=== PATIENT | female | born 1980 | race Caucasian/White ===

== ENCOUNTER 2016-08-24 14:26 | Emergency (ER) | payer OTHER ==
[~2016-08-24] VITALS: Ht 170.2 cm; Wt 112.5 kg
--- NOTE | 2016-08-24 14:35 | PHYS DOC ---
Adult General Chief Complaint Chief Complaint: EYE PROBLEMS HPI HPI Patient is a 35 year old female who presents with pimple to the right eyelid. Patient states that about a week and this morning it popped with a small amount of pus came out of it. She put a warm wet washcloth on it and now there is a small area of blackness around it. She is concerned that it could be a spider bite. She denies any changes in vision, any with movement of her extraocular muscles, fevers chills nausea or vomiting. She is unsure when her last tetanus shot was but does have a 1-year-old home and thinks that she had at this time. Review of Systems Review of Systems Constitutional: Denies fever or chills [] Eyes: Denies change in visual acuity, redness, or eye pain [] HENT: Denies nasal congestion or sore throat [] Respiratory: Denies cough or shortness of breath [] Cardiovascular: No additional information not addressed in HPI [] GI: Denies abdominal pain, nausea, vomiting, bloody stools or diarrhea [] : Denies dysuria or hematuria [] Musculoskeletal: Denies back pain or joint pain [] Integument: Denies rash, positive for skin lesions on right upper eyelid Neurologic: Denies headache, focal weakness or sensory changes [] Endocrine: Denies polyuria or polydipsia [] Current Medications Current Medications Current Medications Medications (Trade) Dose Ordered Sig/Kayleigh Start Time Stop Time Status Last Admin Dose Admin Diphtheria/ Tetanus/Acell Pertussis (Boostrix) 0.5 ml ONCE ONCE 08/24/16 15:15 08/24/16 15:16 DC Fluorescein Sodium (Ful-Nadya) 1 strip 1X ONCE 08/24/16 15:00 08/24/16 15:01 DC Tetracaine HCl (Tetracaine) 1 drop 1X ONCE 08/24/16 15:00 08/24/16 15:01 DC Allergies Allergies Allergies Coded Allergies Type Severity Reaction Last Updated Verified No Known Drug Allergies 07/15/15 No Physical Exam Physical Exam Constitutional: Well developed, well nourished, no acute distress, non-toxic appearance. [] HENT: Normocephalic, atraumatic, bilateral external ears normal, oropharynx moist, no oral exudates, nose normal. [] Eyes: PERRLA, EOMI, conjunctiva normal, no discharge. [] Neck: Normal range of motion, no tenderness, supple, no stridor. [] Cardiovascular:Heart rate regular rhythm, no murmur [] Lungs & Thorax: Bilateral breath sounds clear to auscultation [] Abdomen: Bowel sounds normal, soft, no tenderness, no masses, no pulsatile masses. [] Skin: Warm, dry, no erythema, no rash. 2 mm scab on the right upper eyelid with minimal erythema surrounding it, no swelling of the eyelid. Back: No tenderness, no CVA tenderness. [] Extremities: No tenderness, no cyanosis, no clubbing, ROM intact, no edema. [] Neurologic: Alert and oriented X 3, normal motor function, normal sensory function, no focal deficits noted. [] Psychologic: Affect normal, judgement normal, mood normal. [] Current Patient Data Vital Signs Vital Signs Date Time Temp Pulse Resp B/P (MAP) Pulse Ox O2 Delivery O2 Flow Rate FiO2 08/24/16 14:46 97.9 73 14 95 Room Air 97.9 EKG EKG [] Radiology/Procedures Radiology/Procedures [] Impressions: Eyelid infection Course & Med Decision Making Course & Med Decision Making Pertinent Labs and Imaging studies reviewed. (See chart for details) She looks well. Her exam does not show any pain with extra ocular movement. She is instructed use a warm wet washcloth and use Bactrim twice a day for the next 7 days. Return precautions given for high fevers, extra ocular muscle pain, change in vision to return back to ER. She is agreeable Plan B discharged in stable condition at this time after we updated her tetanus. Artie Disclaimer Artie Disclaimer This electronic medical record was generated, in whole or in part, using a voice recognition dictation system. Departure Departure Impression: Primary Impression: Infection of eyelid Disposition: 01 HOME, SELF-CARE Condition: STABLE Referrals: NO PCP (PCP) Patient Instructions: Facial Infection Additional Instructions: You have a small infection on your upper eyelid of your right eye. You'll need take antibiotics for the next 7 days. Watch for any worsening signs of infection such as swelling, blurry vision, pain when you look from side to side. If any these occur please return back to emergency department. Scripts Sulfamethoxazole/Trimethoprim (BACTRIM DS TABLET) 1 Each Tablet 1 TAB PO BID, #14 TAB Prov: REJI MARTÍNEZ MD 08/24/16 REJI MARTÍNEZ MD Aug 24, 2016 14:35
[2016-08-24 14:46] VITALS: BP 121/47
[2016-08-24] MEDS ORDERED: FLUORESCEIN OPHTH TEST STRIP. OS ONE (15:00)
[2016-08-24] MEDS ORDERED: TETRACAINE 0.5% OPHTH SOLUTION 4ML BOTTLE. OD ONE (15:00)
[2016-08-24] MEDS ORDERED: DIPHTH,PERTUSS(ACELL),TET TOX 0.5 ML DISP.SYRIN. VAX IM ONE (15:15)
[2016-08-24] MEDS ORDERED: SULF1TAB24 PO (15:17)
== END 2016-08-24 15:35 | disposition home or self-care (01) ==
LOC: ER 14:26
DX: H01.9 Unspecified inflammation of eyelid (principal)
CPT/HCPCS: 90471; 90715; 99283-25

== ENCOUNTER 2017-02-13 14:49 | Emergency (ER) | payer OTHER | END 2017-02-13 15:19 | disposition home or self-care (01) | LOC: ER 14:49 | DX: K04.7 Periapical abscess without sinus (principal) | CPT/HCPCS: 99283 ==

== ENCOUNTER 2017-02-16 18:53 | Emergency (ER) | payer OTHER | END 2017-02-16 19:51 | disposition home or self-care (01) | LOC: ER 18:53 | DX: S96.912A Strain of unspecified muscle and tendon at ankle and foot level, left foot, initial encounter (principal); Y93.89 Activity, other specified; Y99.8 Other external cause status; Y92.89 Other specified places as the place of occurrence of the external cause | CPT/HCPCS: 73630; 99284 ==

== ENCOUNTER → 2017-03-13 | Outpatient (CLI) | payer OTHER | END | disposition home or self-care (01) | LOC: US 15:26 | DX: R19.00 Intra-abdominal and pelvic swelling, mass and lump, unspecified site (principal); N88.8 Other specified noninflammatory disorders of cervix uteri; R16.0 Hepatomegaly, not elsewhere classified | CPT/HCPCS: 76700; 76830; 76856 ==

== ENCOUNTER 2017-04-11 13:10 | Emergency (ER) | payer OTHER ==
[2017-04-11] MEDS: ACETAMINOPHEN 500 MG TABLET PO ×2 (13:55)
[2017-04-11 14:13] LABS: INFLUENZA A PATIENT POSITIVE (NEGATIVE); INFLUENZA B PATIENT NEGATIVE (NEGATIVE); OBC FLU VALID
== END 2017-04-11 14:26 | disposition home or self-care (01) ==
LOC: ER 13:10
DX: J09.X2 Influenza due to identified novel influenza A virus with other respiratory manifestations (principal); F17.210 Nicotine dependence, cigarettes, uncomplicated
CPT/HCPCS: 87804; 87804-59; 99284

== ENCOUNTER 2017-06-02 20:16 | Emergency (ER) | payer OTHER | END 2017-06-02 20:30 | disposition home or self-care (01) | LOC: ER 20:16 | DX: K04.7 Periapical abscess without sinus (principal); K02.9 Dental caries, unspecified; Z98.51 Tubal ligation status | CPT/HCPCS: 99283 ==

== ENCOUNTER 2017-11-21 09:42 | Emergency (ER) | payer OTHER ==
[~2017-11-21] VITALS: Ht 170.2 cm; Wt 98.9 kg
[~2017-11-21 09:42] MED LIST: ACET325T9 PO; IBUP-1007 PO; NAPR-683 PO; OSEL75CA PO; PENI500T PO; SULF1TAB24 PO; TRAM50TA PO
[2017-11-21 09:55] VITALS: BP 140/79
[2017-11-21] MEDS: KETOROLAC 60 MG/2 ML INJ. IM ONE (10:23)
[2017-11-21] MEDS ORDERED: CYCL10TA2 PO (10:28)
[2017-11-21] MEDS ORDERED: NAPR-514 PO (10:28)
--- NOTE | 2017-11-21 10:29 | PHYS DOC ---
Past Medical History Past Medical History: No Pertinent History Additional Past Medical Histor: enlarged liver Past Surgical History: Tubal ligation Alcohol Use: Rarely Drug Use: Marijuana Adult General Chief Complaint Chief Complaint: BACK PAIN - NO INJURY HPI HPI Patient is a 37 year old female who presents to the ER with complaints of R upper back, shoulder, and neck pain after feeling something pull in her back this morning while stretching. Pt reports a history of chronic back pain, denies any recent flare up of her symptoms. 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 She denies any weakness, numbness, or tingling of the R arm. Currently, she rates her pain as a 6 out of 10 currently unless she moves then the pain increases. Review of Systems Review of Systems Constitutional: Denies fever or chills [] Musculoskeletal: Denies joint pain; reports R upper back pain, R shoulder pain , R neck pain that increases with movement. Integument: Denies rash or skin lesions [] Neurologic: Denies headache, focal weakness or sensory changes [] All other systems were reviewed and found to be within normal limits, except as documented in this note. Current Medications Current Medications Current Medications Medications (Trade) Dose Ordered Sig/Kayleigh Start Time Stop Time Status Last Admin Dose Admin Ketorolac Tromethamine (Toradol Im) 30 mg 1X ONCE 11/21/17 10:15 11/21/17 10:16 DC 11/21/17 10:23 30 MG Allergies Allergies Allergies Coded Allergies Type Severity Reaction Last Updated Verified morphine Allergy Intermediate hallucinations 11/21/17 Yes Physical Exam Physical Exam Constitutional: Well developed, well nourished, no acute distress, non-toxic appearance. [] HENT: Normocephalic, atraumatic, bilateral external ears normal, nose normal. [ ] Eyes: PERRLA, conjunctiva normal, no discharge. [] Neck: Normal range of motion, no tenderness, supple, no stridor. [] Skin: Warm, dry, no erythema, no rash. [] Back: R lateral muscular tenderness, No bony tenderness Extremities: No cyanosis, no clubbing, ROM intact, no edema. [] Neurologic: Alert and oriented X 3, normal motor function, normal sensory function, no focal deficits noted. [] Psychologic: Affect normal, judgement normal, mood normal. [] Current Patient Data Vital Signs Vital Signs Date Time Temp Pulse Resp B/P (MAP) Pulse Ox O2 Delivery O2 Flow Rate FiO2 11/21/17 09:55 99.0 74 16 140/79 (99) 97 Room Air 99.0 EKG EKG [] Radiology/Procedures Radiology/Procedures [] Course & Med Decision Making Course & Med Decision Making Pertinent Labs and Imaging studies reviewed. (See chart for details) Dx R upper back strain Pt was given 30 mg of toradol IM in the emergency department. Prescriptions written for Flexeril and naproxen. Encouraged pt to apply ice or heat to sore areas for comfort, activity as tolerated, and follow up with PCP next week. Patient verbalized an understanding of home care, medications, follow-up, and return to ED instructions and was in agreement with the plan of care. [] Dragon Disclaimer Dragon Disclaimer This electronic medical record was generated, in whole or in part, using a voice recognition dictation system. Departure Departure Impression: Primary Impression: Muscle strain of right upper back Disposition: HOME, SELF-CARE Condition: STABLE Referrals: PAULINA GILL MD (PCP) Patient Instructions: Back Injury Prevention, [id number], Back Pain, Adult, [id number] Additional Instructions: Fill prescriptions and use as directed. Apply ice or heat for comfort. Activity as tolerated. Follow up with your PCP next week. return to the ER if your symptoms worsen. Scripts Cyclobenzaprine Hcl (CYCLOBENZAPRINE HCL) 10 Mg Tablet 1 TAB PO TID for 7 Days, #21 TAB 0 Refills Prov: YOSSI RINCON APRN 11/21/17 Naproxen (NAPROXEN) 500 Mg Tablet 500 MG PO BID PRN for PAIN for 10 Days, #20 TAB 0 Refills Prov: YOSSI RINCON APRN 11/21/17 Attending Signature Attending Signature I have reviewed the PA/COLORING CHECKER's note and plan of care. I was available for consultation as needed during the patient's visit in the emergency department. I agree with the clinical impression, plan, and disposition. Problem Qualifiers Primary Impression: Muscle strain of right upper back Encounter type: initial encounter Qualified Codes: S29.012A - Strain of muscle and tendon of back wall of thorax, initial encounter YOSSI RINCON APRN Nov 21, 2017 10:28 RICHMOND,SEAN Sood DO Nov 21, 2017 12:08
== END 2017-11-21 10:40 | disposition home or self-care (01) ==
LOC: ER 09:42
DX: S29.012A Strain of muscle and tendon of back wall of thorax, initial encounter (principal); M25.511 Pain in right shoulder; M54.2 Cervicalgia; Z88.5 Allergy status to narcotic agent; X50.9XXA Other and unspecified overexertion or strenuous movements or postures, initial encounter; Y93.E9 Activity, other interior property and clothing maintenance; Y92.89 Other specified places as the place of occurrence of the external cause; Y99.8 Other external cause status
CPT/HCPCS: 96372; 99283; J1885

== ENCOUNTER 2018-06-29 18:59 | Emergency (ER) | payer OTHER ==
[~2018-06-29] VITALS: Ht 170.2 cm; Wt 94.8 kg
[~2018-06-29 18:59] MED LIST changes: +CYCL10TA2 PO; +NAPR-514 PO
[2018-06-29 19:50] VITALS: BP 121/74
[2018-06-29] MEDS ORDERED: PERM60CR12 TP (21:06)
--- NOTE | 2018-06-29 21:07 | PHYS DOC ---
Past Medical History Past Medical History: Other Additional Past Medical Histor: enlarged liver (SEAN NARANJO APRN) Past Surgical History: Tubal ligation (SEAN NARANJO APRN) Smoking: Cigarettes Alcohol Use: Rarely Drug Use: Marijuana (SEAN NARANJO APRN) Adult General Chief Complaint Chief Complaint: ITCHING HPI HPI Patient is a 37 year old female who presents with rash x 2 weeks. The rash is a linear rash that started in the webs of fingers bilaterally and spreads to bilateral arms, legs, abdomen, back and chest. Associated symptoms include itching rated as 10/10. Has tried Benadryl at home and that is not working. Her children have similar symptoms. (SEAN NARANJO APRN) Review of Systems Review of Systems Constitutional: Denies fever or chills [] Eyes: Denies change in visual acuity, redness, or eye pain [] HENT: Denies nasal congestion or sore throat [] Respiratory: Denies cough or shortness of breath [] Cardiovascular: No additional information not addressed in HPI [] GI: Denies abdominal pain, nausea, vomiting, bloody stools or diarrhea [] : Denies dysuria or hematuria [] Musculoskeletal: Denies back pain or joint pain [] Integument: Reports linear rash that itches denies skin lesions [] Neurologic: Denies headache, focal weakness or sensory changes [] Endocrine: Denies polyuria or polydipsia [] Complete systems were reviewed and found to be within normal limits, except as documented in this note. (SEAN NARANJO APRN) Allergies Allergies Allergies Coded Allergies Type Severity Reaction Last Updated Verified morphine Allergy Intermediate hallucinations 11/21/17 Yes (CURT ENGLAND MD) Physical Exam Physical Exam Constitutional: Well developed, well nourished, no acute distress, non-toxic appearance. [] HENT: Normocephalic, atraumatic, bilateral external ears normal, oropharynx moist, no oral exudates, nose normal. [] Eyes: PERRLA, EOMI, conjunctiva normal, no discharge. [] Neck: Normal range of motion, no tenderness, supple, no stridor. [] Cardiovascular:Heart rate regular rhythm, no murmur [] Lungs & Thorax: Bilateral breath sounds clear to auscultation [] Abdomen: Bowel sounds normal, soft, no tenderness, no masses, no pulsatile masses. [] Skin: Warm, dry, linear rash in the webs of finger and going diffusely around body (chest, abdomen, bilateral legs and arms, and neck). Back: No tenderness, no CVA tenderness. [] Extremities: No tenderness, no cyanosis, no clubbing, ROM intact, no edema. [] Neurologic: Alert and oriented X 3, normal motor function, normal sensory function, no focal deficits noted. [] Psychologic: Affect normal, judgement normal, mood normal. [] (SEAN NARANJO APRN) Current Patient Data Vital Signs Vital Signs Date Time Temp Pulse Resp B/P (MAP) Pulse Ox O2 Delivery O2 Flow Rate FiO2 06/29/18 19:50 97.9 75 20 121/74 (90) 99 Room Air 97.9 (CURT ENGLAND MD) EKG EKG [] (SEAN NARANJO APRN) Radiology/Procedures Radiology/Procedures [] (SEAN NARANJO APRN) Course & Med Decision Making Course & Med Decision Making Pertinent Labs and Imaging studies reviewed. (See chart for details) Appears to be scabies will d/c home with medication. (SEAN NARANJO APRN) Course & Med Decision Making Staff Physician Addendum: I was working in the ER during the course of this patient's visit. I was available for consultation as needed, but I was not directly involved in the care of this patient. (CURT ENGLAND MD) Dragon Disclaimer Dragon Disclaimer This electronic medical record was generated, in whole or in part, using a voice recognition dictation system. (SEAN NARANJO APRN) Departure Departure Impression: Primary Impression: Scabies Disposition: 01 HOME, SELF-CARE Condition: STABLE Referrals: NO PCP (PCP) Patient Instructions: Scabies Additional Instructions: apply thin layer to ALL skin surfaces from neck to toes for 8-14 hours then wash off, repeat in 1 week avoid contact with eyes and mucous membranes Scripts Permethrin (PERMETHRIN) 60 Gm Cream..g. 1 DAYAMI TP ONCE, #60 GM 1 Refill repeat in a week Prov: SEAN NARANJO APRN 06/29/18 SEAN NARANJO APRN June 29, 2018 21:07 CURT ENGLAND MD June 30, 2018 06:35
== END 2018-06-29 21:20 | disposition home or self-care (01) ==
LOC: ER 18:59
DX: B86 Scabies (principal); F17.210 Nicotine dependence, cigarettes, uncomplicated; Z88.5 Allergy status to narcotic agent
CPT/HCPCS: 99283

== ENCOUNTER 2019-01-07 21:18 | Emergency (ER) | payer OTHER ==
[~2019-01-07] VITALS: Ht 175.3 cm; Wt 94.8 kg
[~2019-01-07 21:18] MED LIST changes: +PERM60CR12 TP
[2019-01-07 21:35] LABS: BASO # 0.1 x10^3/uL (0.0-0.2); BASO % 1 % (0-3); EOS # 0.2 x10^3/uL (0.0-0.7); EOS % 1 % (0-3); HEMATOCRIT 29.2 % (36.0-47.0); LYMPH # 4.5 x10^3/uL (1.0-4.8); LYMPH % 29 % (24-48); MEAN CORPUSCULAR HEMOGLOBIN 30 pg (25-35); MEAN CORPUSCULAR HGB CONC 34 g/dL (31-37); MEAN CORPUSCULAR VOLUME 87 fL (79-100); MONO # 1.1 x10^3/uL (0.0-1.1); MONO % 7 % (0-9); NEUT # 9.5 x10^3/uL (1.8-7.7); NEUT % 62 % (31-73); PLATELET COUNT 313 x10^3/uL (140-400); RED BLOOD COUNT 3.37 x10^6/uL (3.50-5.40); RED CELL DISTRIBUTION WIDTH 13.7 % (11.5-14.5); WHITE BLOOD COUNT 15.3 x10^3/uL (4.0-11.0)
--- NOTE | 2019-01-07 21:38 | PHYS DOC ---
Past Medical History Past Medical History: Other Additional Past Medical Histor: enlarged liver Past Surgical History: Tubal ligation Alcohol Use: Rarely Drug Use: Marijuana Adult General Chief Complaint Chief Complaint: MULTIPLE COMPLAINTS [facility] HPI 38-year-old female presents to the emergency department with complaints of vaginal bleeding, chest pain. States her last normal menstrual cycle was around November 2018. She describes over the last approximate 18 days she's had heavy bleeding which she describes as going through at least a pad or more an hour. She states at times she was using a towel because she had so much blood. Patient states that since that time she's had some intermittent chest pain, nausea, blurry vision at times. Nothing makes her symptoms worse, nothing makes her symptoms better. She denies any fever. She states she has had a tubal ligation. Review of Systems Review of Systems Constitutional: Denies fever or chills [] Eyes: blurry vision at times HENT: Denies nasal congestion or sore throat [] Respiratory: Denies cough or shortness of breath [] Cardiovascular: No additional information not addressed in HPI [] GI: abdominal cramping, + nausea, no vomiting, bloody stools or diarrhea [] : Denies dysuria or hematuria [] Musculoskeletal: Denies back pain or joint pain [] Integument: Denies rash or skin lesions [] Neurologic: Denies headache, focal weakness or sensory changes [] All other systems were reviewed and found to be within normal limits, except as documented in this note. Allergies Allergies Allergies Coded Allergies Type Severity Reaction Last Updated Verified morphine Allergy Intermediate hallucinations 11/21/17 Yes Physical Exam Physical Exam Constitutional: Well developed, well nourished, no acute distress, non-toxic appearance. [] HENT: Normocephalic, atraumatic, bilateral external ears normal, oropharynx moist, no oral exudates, nose normal. [] Eyes: PERRLA, EOMI, conjunctiva normal, no discharge. [] Cardiovascular:Heart rate regular rhythm, no murmur [] Lungs & Thorax: Bilateral breath sounds clear to auscultation [] Abdomen: Bowel sounds normal, soft, no tenderness, no masses, no pulsatile masses. [] Skin: Warm, dry, no erythema, no rash. [] Back: No tenderness, no CVA tenderness. [] Extremities: No tenderness, no edema. [] Neurologic: Alert and oriented X 3, no focal deficits noted. [] Psychologic: Affect normal, judgement normal, mood normal. [] : Speculum exam reveals evidence of blood within the vaginal vault some clot appreciated, no evidence of tissue. Current Patient Data Vital Signs Vital Signs Date Time Temp Pulse Resp B/P (MAP) Pulse Ox O2 Delivery O2 Flow Rate FiO2 01/07/19 22:38 69 104/49 (67) 98 01/07/19 21:24 98.1 20 Room Air 98.1 Lab Values Laboratory Tests Test 01/07/19 21:12 01/07/19 21:46 White Blood Count 15.3 x10^3/uL (4.0-11.0) H Red Blood Count 3.37 x10^6/uL (3.50-5.40) L Hemoglobin 10.0 g/dL (12.0-15.5) L Hematocrit 29.2 % (36.0-47.0) L Mean Corpuscular Volume 87 fL (79-100) Mean Corpuscular Hemoglobin 30 pg (25-35) Mean Corpuscular Hemoglobin Concent 34 g/dL (31-37) Red Cell Distribution Width 13.7 % (11.5-14.5) Platelet Count 313 x10^3/uL (140-400) Neutrophils (%) (Auto) 62 % (31-73) Lymphocytes (%) (Auto) 29 % (24-48) Monocytes (%) (Auto) 7 % (0-9) Eosinophils (%) (Auto) 1 % (0-3) Basophils (%) (Auto) 1 % (0-3) Neutrophils # (Auto) 9.5 x10^3/uL (1.8-7.7) H Lymphocytes # (Auto) 4.5 x10^3/uL (1.0-4.8) Monocytes # (Auto) 1.1 x10^3/uL (0.0-1.1) Eosinophils # (Auto) 0.2 x10^3/uL (0.0-0.7) Basophils # (Auto) 0.1 x10^3/uL (0.0-0.2) Sodium Level 141 mmol/L (136-145) Potassium Level 3.4 mmol/L (3.5-5.1) L Chloride Level 104 mmol/L (98-107) Carbon Dioxide Level 28 mmol/L (21-32) Anion Gap 9 (6-14) Blood Urea Nitrogen 8 mg/dL (7-20) Creatinine 0.9 mg/dL (0.6-1.0) Estimated GFR (Cockcroft-Gault) 70.5 BUN/Creatinine Ratio 9 (6-20) Glucose Level 104 mg/dL (70-99) H Calcium Level 8.9 mg/dL (8.5-10.1) Total Bilirubin 0.2 mg/dL (0.2-1.0) Aspartate Amino Transferase (AST) 16 U/L (15-37) Alanine Aminotransferase (ALT) 15 U/L (14-59) Alkaline Phosphatase 40 U/L (46-116) L Troponin I Quantitative < 0.017 ng/mL (0.000-0.055) Total Protein 7.5 g/dL (6.4-8.2) Albumin 4.1 g/dL (3.4-5.0) Albumin/Globulin Ratio 1.2 (1.0-1.7) POC Urine HCG, Qualitative Hcg negative (Negative) Laboratory Tests 01/07/19 21:12 Laboratory Tests 01/07/19 21:12 EKG EKG [] Radiology/Procedures Radiology/Procedures [] Course & Med Decision Making Course & Med Decision Making Pertinent Labs and Imaging studies reviewed. (See chart for details) []38-year-old female presents to the emergency department with complaints of vaginal bleeding, chest pain. States her last normal menstrual cycle was around November 2018. She describes over the last approximate 18 days she's had heavy bleeding which she describes as going through at least a pad or more an hour. She states at times she was using a towel because she had so much blood. Patient states that since that time she's had some intermittent chest pain, nausea, blurry vision at times. Nothing makes her symptoms worse, nothing makes her symptoms better. She denies any fever. She states she has had a tubal ligation. labs reviewed No evidence of Hgb stable 10 Discussed use of provera 10mg po x 10 days Recommend follow up with PCP in 3 - 5 days Artie Disclaimer Dragon Disclaimer This electronic medical record was generated, in whole or in part, using a voice recognition dictation system. Departure Departure Impression: Primary Impression: Dysfunctional uterine bleeding Disposition: HOME, SELF-CARE Condition: STABLE Referrals: NO PCP (PCP) Patient Instructions: Uterine Bleeding, Dysfunctional, [id number] Additional Instructions: Recommend follow up with PCP 3 - 5 days Return to the ER with worsening symptoms, intractable pain, fever, altered mental status Tylenol/Motrin as needed for pain Provera rx provided upon discharge for 10 days MORENA RAND MD Jan 07, 2019 21:38
[2019-01-07 21:42] LABS: CALCIUM 8.9 mg/dL (8.5-10.1); CREATININE 0.9 mg/dL (0.6-1.0); GFR 70.5; POTASSIUM 3.4 mmol/L (3.5-5.1)
[2019-01-07 21:48] LABS: ALBUMIN 4.1 g/dL (3.4-5.0); ALBUMIN/GLOBULIN RATIO 1.2 (1.0-1.7); TOTAL BILIRUBIN 0.2 mg/dL (0.2-1.0); TOTAL PROTEIN 7.5 g/dL (6.4-8.2)
[2019-01-07 22:38] VITALS: BP 104/49
--- NOTE | 2019-01-08 07:47 | EKG ---
[facility] [address] [place] [address] Test Date: 2019-01-07 Test Time: 21:26:40 Pat Name: ETHEL MONAHAN Department: Room: Gender: F [employer]: : 1980 Requested By: MORENA RAND Order Number: [id number] Reading MD: Efrain Fernandez Measurements Intervals [place] Rate: 81 P: 52 SC: 166 QRS: 12 QRSD: 78 T: 34 QT: 354 QTc: 412 Interpretive Statements SINUS RHYTHM NORMAL ECG Electronically Signed On 01-11-2019 14:49:08 ROOF TRUSS DETAILER by Efrain Fernandez
== END 2019-01-07 23:03 | disposition home or self-care (01) ==
LOC: ER 21:18
DX: N93.8 Other specified abnormal uterine and vaginal bleeding (principal); Z98.51 Tubal ligation status; Z88.5 Allergy status to narcotic agent
CPT/HCPCS: 36415; 80053; 81025; 84484; 85025; 86850; 86900; 86901; 93005; 99285

== ENCOUNTER 2019-10-19 15:36 | Emergency (ER) | payer OTHER ==
[~2019-10-19] VITALS: Ht 170.2 cm; Wt 100.0 kg
[2019-10-19 16:17] VITALS: BP 157/84
[2019-10-19 16:41] LABS: BILIRUBIN,URINE NEGATIVE (NEG); CLARITY,URINE CLEAR; NITRITE,URINE NEGATIVE (NEG); PROTEIN,URINE 30 mg/dL (NEG-TRACE); UROBILINOGEN,URINE 0.2 mg/dL (0.2 mg/dL)
[2019-10-19 16:48] LABS: COLOR,URINE DK YELLOW
[2019-10-19 16:49] LABS: RBC,URINE >40 /HPF (0-2); SQUAMOUS EPITHELIAL CELL,UR MANY /LPF
[2019-10-19 16:50] LABS: BACTERIA,URINE MODERATE /HPF (0-FEW)
[2019-10-19] MEDS ORDERED: CYCL10TA2 PO (17:03)
[2019-10-19] MEDS ORDERED: NAPR-514 PO (17:03)
--- NOTE | 2019-10-19 17:05 | PHYS DOC ---
Past Medical History Past Medical History: No Pertinent History, Other Additional Past Medical Histor: enlarged liver, HPV Past Surgical History: Tubal ligation Smoking Status: Current Every Day Smoker Alcohol Use: Occasionally Drug Use: Marijuana General Adult EDM: Chief Complaint: LOWER BACK PAIN OR INJURY HPI: HPI: Patient is a 38 year old female who presents to the emergency department with complaints of bilateral lower back pain that radiates into her right leg with movement. She reports that the pain began about 3 days ago. She denies any known injury, recent banding, fall, or recent heavy lifting. She denies any dysuria, hematuria, increased urinary frequency. She denies any numbness, tingling, or weakness of her lower extremities. The patient reports a history of prior back problems and states that this pain is similar to previous episodes of back pain. She states that her pain is currently a 10 out of 10 on a pain scale, she denies any alleviating factors. Review of Systems: Review of Systems: Constitutional: Denies fever or chills. [] Respiratory: Denies cough or shortness of breath. [] : See HPI Musculoskeletal: See HPI Integument: Denies rash. [] Neurologic: Denies headache, focal weakness or sensory changes. [] Psychiatric: Denies depression or anxiety. [] Heart Score: Risk Factors: Risk Factors: DM, Current or recent (<one month) smoker, HTN, HLP, family history of CAD, obesity. Risk Scores: Score 0 - 3: 2.5% MACE over next 6 weeks - Discharge Home Score 4 - 6: 20.3% MACE over next 6 weeks - Admit for Clinical Observation Score 7 - 10: 72.7% MACE over next 6 weeks - Early Invasive Strategies Allergies: Allergies: Allergies Coded Allergies Type Severity Reaction Last Updated Verified morphine Allergy Intermediate hallucinations 11/21/17 Yes Physical Exam: PE: Constitutional: Well developed, well nourished, no acute distress, non-toxic appearance. [] HENT: Normocephalic, atraumatic, bilateral external ears normal, nose normal. [] Eyes: PERRLA, EOMI, conjunctiva normal, no discharge. [] Neck: Normal range of motion, no stridor. [] Cardiovascular:Heart rate regular rhythm Lungs & Thorax: Respirations even and unlabored, no retractions, no respiratory distress Back: Bilateral musculoskeletal tenderness to palpation of the lumbar spine, no bony tenderness or deformity, pain radiates down the right leg with right straight leg movement Skin: Warm, dry, no erythema, no rash, no bruising. [] Extremities: No cyanosis, ROM intact, no edema. [] Neurologic: Alert and oriented X 3, no focal deficits noted. [] Psychologic: Affect normal, judgement normal, mood normal. [] Current Patient Data: Labs: Laboratory Tests Test 10/19/19 16:10 Urine Collection Type Unknown Urine Color Dk yellow Urine Clarity Clear Urine pH 5.0 (<5.0-8.0) Urine Specific [place] 1.020 (1.000-1.030) Urine Protein 30 mg/dL (NEG-TRACE) Urine Glucose (UA) Negative mg/dL (NEG) Urine Ketones (Stick) Negative mg/dL (NEG) Urine Blood Large (NEG) Urine Nitrite Negative (NEG) Urine Bilirubin Negative (NEG) Urine Urobilinogen Dipstick 0.2 mg/dL (0.2 mg/dL) Urine Leukocyte Esterase Moderate (NEG) Urine RBC >40 /HPF (0-2) Urine WBC 1-4 /HPF (0-4) Urine Squamous Epithelial Cells Many /LPF Urine Bacteria Moderate /HPF (0-FEW) Urine Mucus Marked /LPF Vital Signs: Vital Signs Date Time Temp Pulse Resp B/P (MAP) Pulse Ox O2 Delivery O2 Flow Rate FiO2 10/19/19 16:17 98.2 66 18 157/84 (108) 97 Room Air 98.2 EKG: EKG: [] Radiology/Procedures: Radiology/Procedures: [] Course & Med Decision Making: Course & Med Decision Making Pertinent Labs and Imaging studies reviewed. (See chart for details) [] 38-year-old female presented to the emergency department with complaints of a lower back pain exacerbation. She was given 10 mg of IM Decadron and 30 mg of IM Toradol. Patient reported some relief after these medications. A prescription was written for naproxen and Flexeril. The patient's urine was concerning for a grade amount of red blood cells however the patient reported that she was currently on her menstrual cycle denied any urinary symptoms. Encouraged patient to follow-up with her primary care doctor this week, return to the ER if symptoms worsen. Patient verbalized an understanding of home care, medications, follow-up, and return to ED instructions and was in agreement with the plan of care. Artie Disclaimer: Artie Disclaimer: This electronic medical record was generated, in whole or in part, using a voice recognition dictation system. Departure Departure Impression: Primary Impression: Low back pain at multiple sites Additional Impression: Right sided sciatica Disposition: 01 HOME, SELF-CARE Condition: STABLE Referrals: PAULINA GILL MD (PCP) Patient Instructions: Back Pain, Adult, [id number], Sciatica, [id number] Additional Instructions: Fill the prescription(s) and use as directed. Apply heat or ice for to sore areas as needed for comfort. Activity as tolerated. Follow up with your primary care doctor this week if symptoms persist, return to the ER if symptoms worsen. Scripts Naproxen (NAPROXEN) 500 Mg Tablet 1 TAB PO BID PRN for PAIN for 10 Days, #20 TAB 0 Refills Prov: YOSSI RINCON APRN 10/19/19 Cyclobenzaprine Hcl (CYCLOBENZAPRINE HCL) 10 Mg Tablet 1 TAB PO TID PRN for PAIN, #30 TAB 0 Refills Prov: YOSSI RINCON APRN 10/19/19 Justicifation of Admission Dx: Justifications for Admission: Justification of Admission Dx: N/A YOSSI RINCON APRN Oct 19, 2019 17:05
[2019-10-19] MEDS ORDERED: KETOROLAC 60 MG/2 ML VIAL. IM ONE (17:15)
[2019-10-19] MEDS ORDERED: DEXAMETHASONE SOD PHOS 20 MG/5 ML VIAL. IM ONE (17:15)
== END 2019-10-19 17:28 | disposition home or self-care (01) ==
LOC: ER 15:36
DX: M54.41 Lumbago with sciatica, right side (principal); F17.200 Nicotine dependence, unspecified, uncomplicated; Z88.5 Allergy status to narcotic agent
CPT/HCPCS: 81001; 87086; 96372; 99284; J1100; J1885

== ENCOUNTER 2020-07-22 22:37 | Emergency (ER) | payer OTHER ==
[~2020-07-22] VITALS: Ht 170.2 cm; Wt 102.0 kg
[2020-07-22 23:10] VITALS: BP 153/80
[2020-07-23] MEDS ORDERED: BENZ100C PO (00:44)
[2020-07-23] MEDS ORDERED: PRED20TA PO (00:44)
[2020-07-23] MEDS ORDERED: AZIT250T PO (00:44)
--- NOTE | 2020-07-23 00:45 | PHYS DOC ---
Past Medical History Past Medical History: No Pertinent History, Other Additional Past Medical Histor: enlarged liver, HPV Past Surgical History: Tubal ligation Smoking Status: Current Every Day Smoker Alcohol Use: Occasionally Drug Use: Marijuana General Adult EDM: Chief Complaint: MULTIPLE COMPLAINTS HPI: HPI: Patient is a 39 year old [f__sex] who presents with [] Review of Systems: Review of Systems: Constitutional: Denies fever or chills. [] Eyes: Denies change in visual acuity. [] HENT: Denies nasal congestion or sore throat. [] Respiratory: Denies cough or shortness of breath. [] Cardiovascular: Denies chest pain or edema. [] GI: Denies abdominal pain, nausea, vomiting, bloody stools or diarrhea. [] : Denies dysuria. [] Musculoskeletal: Denies back pain or joint pain. [] Integument: Denies rash. [] Neurologic: Denies headache, focal weakness or sensory changes. [] Endocrine: Denies polyuria or polydipsia. [] Lymphatic: Denies swollen glands. [] Psychiatric: Denies depression or anxiety. [] Heart Score: Risk Factors: Risk Factors: DM, Current or recent (<one month) smoker, HTN, HLP, family history of CAD, obesity. Risk Scores: Score 0 - 3: 2.5% MACE over next 6 weeks - Discharge Home Score 4 - 6: 20.3% MACE over next 6 weeks - Admit for Clinical Observation Score 7 - 10: 72.7% MACE over next 6 weeks - Early Invasive Strategies Current Medications: Current Medications Medications (Trade) Dose Ordered [facility] Start Time Stop Time Status Last Admin Dose Admin Dexamethasone (Decadron) 10 mg 1X ONCE 07/23/20 01:00 07/23/20 01:01 07/23/20 00:35 10 MG Allergies: Allergies: Allergies Coded Allergies Type Severity Reaction Last Updated Verified morphine Allergy Intermediate hallucinations 11/21/17 Yes Physical Exam: PE: Constitutional: Well developed, well nourished, no acute distress, non-toxic appearance. [] HENT: Normocephalic, atraumatic, bilateral external ears normal, oropharynx moist, no oral exudates, nose normal. [] Eyes: PERRLA, EOMI, conjunctiva normal, no discharge. [] Neck: Normal range of motion, no tenderness, supple, no stridor. [] Cardiovascular:Heart rate regular rhythm, no murmur [] Lungs & Thorax: Bilateral breath sounds clear to auscultation [] Abdomen: Bowel sounds normal, soft, no tenderness, no masses, no pulsatile masses. [] Skin: Warm, dry, no erythema, no rash. [] Back: No tenderness, no CVA tenderness. [] Extremities: No tenderness, no cyanosis, no clubbing, ROM intact, no edema. [] Neurologic: Alert and oriented X 3, normal motor function, normal sensory function, no focal deficits noted. [] Psychologic: Affect normal, judgement normal, mood normal. [] Current Patient Data: Vital Signs: Vital Signs Date Time Temp Pulse Resp B/P (MAP) Pulse Ox O2 Delivery O2 Flow Rate FiO2 07/22/20 23:10 98.2 68 16 153/80 (104) 98 Room Air 98.2 EKG: EKG: [] Radiology/Procedures: Radiology/Procedures: [] Course & Med Decision Making: Course & Med Decision Making Pertinent Labs and Imaging studies reviewed. (See chart for details) [] Dragon Disclaimer: Dragon Disclaimer: This electronic medical record was generated, in whole or in part, using a voice recognition dictation system. Departure Departure Impression: Primary Impression: Bronchitis Additional Impression: Suspected 2019 novel coronavirus infection Disposition: HOME / SELF CARE / HOMELESS Condition: STABLE Referrals: PAULINA GILL MD (PCP) Patient Instructions: Acute Bronchitis, [id number] Additional Instructions: You have been tested for or diagnosed with COVID-19. It is an infection caused by a new type of coronavirus. COVID-19 will cause cold-like or mild flu symptoms in most. It can cause more severe symptoms like problems breathing in some. There is no treatment for COVID-19. The body will clear the infection over time. Self-care will help to ease discomfort. Steps to Take: Self-Care Rest as needed. Healthy habits may help you feel better. Steps include: Choose healthy foods including fruits and vegetables. Drink water throughout the day. Get plenty of sleep each night. If you smoke, try to quit. It may ease breathing. Avoid alcohol. Keep Others Healthy The virus can spread to others. Droplets are released every time you sneeze or cough. The droplets can get into the mouth, nose, or eyes of people near you and lead to infection. To lower the chances of spreading COVID-19 to others: Stay at home until your doctor has said it is safe to leave. If you tested positive this will mean staying isolated until both of the following are true: At least 7 days have passed since the start of illness. You are free of fever for at least 72 hours without the use of medicine. During this time: - Avoid public areas, events, or transportation. Do not return to work or school until your doctor has said it is safe to do so. - Call ahead if you need to go to a medical center. Let them know you may have COVID-19. It will help them guide you where to go. They may also ask you to wear a facemask when you come to the office. - If you call for emergency medical services, let them know you may have COVID- 19. While at home: - Try to avoid close contact with others. Stay about 6 feet away. - If possible, spend most of your time in a separate room from others. - Use a face mask if you will be in close contact with others such as sharing a room or vehicle. - Have someone wipe down common surfaces in the home. Use household catering server every day on areas like doorknobs, counters, or sinks. - Cough or sneeze into a tissue. Throw the tissue away right after use. If a tissue is not available, cough or sneeze into your elbow. - Wash your hands often. Wash them after sneezing or coughing. Use soap and water and wash for at least 20 seconds. Alcohol based hand stable cleaner can be used if soap and water is not available. - Do not prepare food for others. Avoid sharing personal items like forks, s poons, or toothbrushes. - Avoid close contact with pets while you are sick. There is no evidence of the virus passing to pets. This is a safety step until more is known about this virus. Isolation can be frustrating. Social interaction can help. Keep in touch with friends and family through phone and tech options. You can still interact with others in your home, just keep a safe distance of about 6 feet. Follow-up: Your doctors office will check in with you to see if there are any changes in your health. You may be asked to keep track of symptoms to share with them. They will also let you know when you are clear to be in public again. Problems to Look Out For: Contact your doctor if your recovery is not going as you expect. Get emergency care if you have problems such as: - Trouble breathing - Nonstop chest pain or pressure - Changes in awareness, confusion, or problems waking - Lips or face have bluish color - Worsening of symptoms If you think you have an emergency, call for emergency medical services right away. [facility] [email or web address] [email or web address] Scripts Benzonatate (TESSALON PERLE) 100 Mg Capsule 100 MG PO TID PRN for COUGH, #20 CAP Prov: SEAN RICHMOND DO 07/23/20 Prednisone (PREDNISONE) 20 Mg Tablet 2 TAB PO DAILY, #8 TAB Prov: SEAN RICHMOND DO 07/23/20 Azithromycin (ZITHROMAX) 250 Mg Tablet 1 PKG PO UD for bronchitis, #6 TAB Take 2 tablets on day 1 and then 1 tablet each day for the next 4 days as directed Prov: SEAN RICHMOND DO 07/23/20 SEAN RICHMOND DO Jul 23, 2020 00:44
--- NOTE | 2020-07-23 00:56 | RAD ---
XR CHEST 1V History: Reason: cough, viral symptoms, COVID PUI / Spl. Instructions: / History: Comparison: None. Findings: Slight ill-defined mid and bibasilar opacities. No pleural effusion. No pneumothorax. Normal heart si ze. Impression: 1. Slight ill-defined mid and bibasilar opacities, can be seen with viral pneumonia. Electronically signed by: Juan Bejarano DO (07/23/2020 12:54 AM) [facility]
[2020-07-23] MEDS ORDERED: DEXAMETHASONE 4 MG TABLET PO ONE (01:00)
--- NOTE | 2020-07-24 10:22 | NUR ---
IP: Attempted to contact pt concerning covid results. No answer, left a voicemail to return the call.
== END 2020-07-23 01:35 | disposition home or self-care (01) ==
LOC: ER 22:37
DX: J40 Bronchitis, not specified as acute or chronic (principal); Z20.822 Contact with and (suspected) exposure to COVID-19; F17.200 Nicotine dependence, unspecified, uncomplicated
CPT/HCPCS: 71045; 99284; U0003; U0005

== ENCOUNTER 2020-08-23 15:20 | Emergency (ER) | payer OTHER ==
[~2020-08-23] VITALS: Ht 167.6 cm; Wt 103.9 kg
[~2020-08-23 15:20] MED LIST changes: +AZIT250T PO; +BENZ100C PO; +PRED20TA PO
[2020-08-23 16:16] VITALS: BP 119/77
[2020-08-23] MEDS ORDERED: DIPH25TA64 PO (17:30)
[2020-08-23] MEDS ORDERED: AMOX500T PO (17:30)
[2020-08-23] MEDS ORDERED: PRED50TA PO (17:30)
[2020-08-23] MEDS ORDERED: FAMO20TA5 PO (17:30)
--- NOTE | 2020-08-23 17:31 | PHYS DOC ---
Past Medical History Past Medical History: No Pertinent History, Other Additional Past Medical Histor: enlarged liver, HPV Past Surgical History: No Surgical History Smoking Status: Current Every Day Smoker Alcohol Use: Occasionally Drug Use: Marijuana General Adult EDM: Chief Complaint: DENTAL PROBLEM HPI: HPI: Patient is a 39 year old female who presents to the ED today complaining of sick back to the right anterior ankle that she noted yesterday while walking through her driveway. Patient denies any fever, throat or tongue swelling. Patient is also complaining of dental pain rated as mild and infection for one week. She states she has had bad teeth for a long time and is in the process of getting them extracted. Denies any fever or trismus. Review of Systems: Review of Systems: Constitutional: Denies fever or chills. [] HENT: Reports dental infection and pain : Denies dysuria. [] Musculoskeletal: Denies back pain or joint pain. [] Integument: Reports insect bite to the right anterior knee. Neurologic: Denies headache, focal weakness or sensory changes. [] Psychiatric: Denies depression or anxiety. [] Heart Score: C/O Chest Pain: N/A Risk Factors: Risk Factors: DM, Current or recent (<one month) smoker, HTN, HLP, family history of CAD, obesity. Risk Scores: Score 0 - 3: 2.5% MACE over next 6 weeks - Discharge Home Score 4 - 6: 20.3% MACE over next 6 weeks - Admit for Clinical Observation Score 7 - 10: 72.7% MACE over next 6 weeks - Early Invasive Strategies Allergies: Allergies: Allergies Coded Allergies Type Severity Reaction Last Updated Verified morphine Allergy Intermediate hallucinations 11/21/17 Yes Physical Exam: PE: Constitutional: Well developed, well nourished, no acute distress, non-toxic appearance. [] HENT: Normocephalic, atraumatic, bilateral external ears normal, oropharynx moist, no oral exudates, nose normal. [] Missing multiple teeth, scattered dental caries on the remaining teeth, dental decay noted on premolar on the right lower gum that is the tooth of concern, no gum erythema or abscess Skin: Right anterior ankle with a small area of erythema consistent with insect bite. Back: No tenderness, no CVA tenderness. [] Extremities: No tenderness, no cyanosis, no clubbing, ROM intact, no edema. [] Neurologic: Alert and oriented X 3, normal motor function, normal sensory function, no focal deficits noted. [] Psychologic: Affect normal, judgement normal, mood normal. [] Current Patient Data: Labs: Laboratory Tests Test 08/23/20 17:01 POC Urine HCG, Qualitative Hcg negative (Negative) Vital Signs: Vital Signs Date Time Temp Pulse Resp B/P (MAP) Pulse Ox O2 Delivery O2 Flow Rate FiO2 08/23/20 16:16 98.0 67 16 119/77 98 Room Air 98.0 EKG: EKG: [] Radiology/Procedures: Radiology/Procedures: [] Course & Med Decision Making: Course & Med Decision Making Pertinent Labs and Imaging studies reviewed. (See chart for details) This is a 39-year-old female patient presenting to the ED today with dental infection, discharged on amoxicillin, also has an insect bite that occurred yesterday on the right lower extremity with no signs of infection. Will be discharged on amoxicillin for the dental infection. Prednisone Benadryl and Pepcid for the insect bite. Dragon Disclaimer: Dragchristianne Disclaimer: This electronic medical record was generated, in whole or in part, using a voice recognition dictation system. Departure Departure Impression: Primary Impression: Dentalgia Additional Impressions: Infected dental caries Insect bite of lower extremity Qualified Codes: S80.861A - Insect bite (nonvenomous), right lower leg, initial encounter; W57.XXXA - Bitten or stung by nonvenomous insect and other nonvenomous arthropods, initial encounter Disposition: HOME / SELF CARE / HOMELESS Condition: STABLE Referrals: PAULINA GILL MD (PCP) Follow-up in 1 to 2 weeks Patient Instructions: Dental Caries, Insect Bite, [id number] Additional Instructions: You were evaluated in the emergency room, please use the prescribed medications as ordered. Follow-up with your primary care doctor and dentist in 1 to 2 weeks Scripts Famotidine (FAMOTIDINE) 20 Mg Tablet 10 MG PO DAILY, #14 TAB Prov: JAMES SOLOMON SIENE MAKER 08/23/20 Amoxicillin (AMOXICILLIN) 500 Mg Tablet 1 TAB PO BID, #20 TAB Prov: MUTUNGAJAMES M SIENE MAKER 08/23/20 Prednisone (PREDNISONE) 50 Mg Tablet 1 TAB PO DAILY, #5 TAB Prov: MUTUNGAJAMES SIENE MAKER 08/23/20 Diphenhydramine Hcl (BENADRYL ALLERGY) 25 Mg Tablet 1 TAB PO Q6HRS PRN for RASH, #30 TAB 0 Refills Prov: JAMES SOLOMON APRN 08/23/20 JAMES SOLOMON APRN Aug 23, 2020 17:31
== END 2020-08-23 17:50 | disposition home or self-care (01) ==
LOC: ER 15:20
DX: S80.861A Insect bite (nonvenomous), right lower leg, initial encounter (principal); K04.7 Periapical abscess without sinus; F17.200 Nicotine dependence, unspecified, uncomplicated; W57.XXXA Bitten or stung by nonvenomous insect and other nonvenomous arthropods, initial encounter; Y93.89 Activity, other specified; Y92.89 Other specified places as the place of occurrence of the external cause; Y99.8 Other external cause status
CPT/HCPCS: 81025; 99283

== ENCOUNTER 2020-12-11 16:22 | Emergency (ER) | payer OTHER ==
[~2020-12-11] VITALS: Ht 172.7 cm; Wt 104.0 kg
[~2020-12-11 16:22] MED LIST changes: +AMOX500T PO; +CYCL10TA19 PO; -CYCL10TA2 PO; +DIPH25TA64 PO; +FAMO20TA5 PO; +PRED50TA PO
--- NOTE | 2020-12-11 17:09 | EKG ---
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
--- NOTE | 2020-12-11 17:14 | RAD ---
EXAMINATION: Chest radiograph. VIEWS: Single AP view of the chest COMPARISON: 07/23/2020 INDICATION:40 years, Female, chest pain. FINDINGS: Normal cardiomediastinal silhouette. Ill-defined bibasilar peripheral opacities. No pleural effusion or pneumothorax. No acute osseous process. IMPRESSION: Ill-defined bibasilar peripheral opacities a component of this may represent soft tissue summation, t his can also be seen in the setting of atypical viral pneumonia Electronically signed by: Jason Khan DO (12/11/2020 5:11 PM) [facility]
--- NOTE | 2020-12-11 17:38 | PHYS DOC ---
Past Medical History Past Medical History: No Pertinent History, Other Additional Past Medical Histor: enlarged liver, HPV Past Surgical History: No Surgical History Smoking Status: Current Every Day Smoker Alcohol Use: Occasionally Drug Use: Marijuana General Adult EDM: Chief Complaint: CHEST PAIN HPI: HPI: Patient is a 40 year old female who is known COVID positive who presents with myalgias, lower abdominal pain, congestion and decreased sense of taste and smell, and left-sided and central pleuritic chest pain that sometimes radiates t o the right side x1 week. Patient states her symptoms began on 12/01, and she tested COVID positive either on 12/04 or 12/05. Patient has no other complaints at this time. Review of Systems: Review of Systems: 12 systems reviewed. ROS negative except as mentioned in HPI. Heart Score: C/O Chest Pain: N/A Allergies: Allergies: Allergies Coded Allergies Type Severity Reaction Last Updated Verified morphine Allergy Intermediate hallucinations 11/21/17 Yes Physical Exam: PE: Constitutional: Well developed, well nourished, no acute distress, non-toxic appearance. [] HENT: Normocephalic, atraumatic, bilateral external ears normal, oropharynx moist, no oral exudates, nose normal. [] Eyes: PERRLA, EOMI, conjunctiva normal, no discharge. [] Neck: Normal range of motion, no tenderness, supple, no stridor. [] Cardiovascular:Heart rate regular rhythm, no murmur [] Lungs & Thorax: Bilateral breath sounds clear to auscultation [] Abdomen: Bowel sounds normal, soft, no tenderness, no masses, no pulsatile masses. [] Skin: Warm, dry, no erythema, no rash. [] Back: No tenderness, no CVA tenderness. [] Extremities: No tenderness, no cyanosis, no clubbing, ROM intact, no edema. [] Neurologic: Alert and oriented X 3, normal motor function, normal sensory funct ion, no focal deficits noted. [] Psychologic: Affect normal, judgement normal, mood normal. [] Current Patient Data: Labs: Laboratory Tests Test 12/11/20 16:50 POC Urine HCG, Qualitative Hcg negative (Negative) EKG: EKG: EKG Interpreted by Dr. Colindres at 1636: Regular rate and rhythm 76 bpm with no ectopic beats. No concerning ST-T wave changes. Regular QR interval. Radiology/Procedures: Radiology/Procedures: PROCEDURE: PORTABLE CHEST 1V EXAMINATION: Chest radiograph. VIEWS: Single AP view of the chest COMPARISON: 07/23/2020 INDICATION:40 years, Female, chest pain. FINDINGS: Normal cardiomediastinal silhouette. Ill-defined bibasilar peripheral opacities. No pleural effusion or pneumothorax. No acute osseous process. IMPRESSION: Ill-defined bibasilar peripheral opacities a component of this may represent soft tissue summation, this can also be seen in the setting of atypical viral pneumonia Electronically signed by: Jason Khan DO (12/11/2020 5:11 PM) [facility] Course & Med Decision Making: Course & Med Decision Making Pertinent Labs and Imaging studies reviewed. (See chart for details) Patient has persistent symptoms consistent with COVID-19 infection. Patient does not report any increased shortness of breath and she does not require any oxygen at this time. She was advised that there is some mild changes to her lung bases. She will be provided with incentive spirometry and an albuterol inhaler. Patient has strict return precautions for increased work of breath, shortness of breath or other worsening symptoms. Patient understands and is agreeable to discharge plan. Dragon Disclaimer: Dragon Disclaimer: This electronic medical record was generated, in whole or in part, using a voice recognition dictation system. Departure Departure Impression: Primary Impression: COVID-19 virus infection Disposition: 01 HOME / SELF CARE / HOMELESS Condition: STABLE Referrals: PAULINA GILL MD (PCP) Additional Instructions: You have been tested for or diagnosed with COVID-19. It is an infection caused by a new type of coronavirus. COVID-19 will cause cold-like or mild flu symptoms in most. It can cause more severe symptoms like problems breathing in some. There is no treatment for COVID-19. The body will clear the infection over time. Self-care will help to ease discomfort. Steps to Take: Self-Care Rest as needed. Healthy habits may help you feel better. Steps include: Choose healthy foods including fruits and vegetables. Drink water throughout the day. Get plenty of sleep each night. If you smoke, try to quit. It may ease breathing. Avoid alcohol. Keep Others Healthy The virus can spread to others. Droplets are released every time you sneeze or cough. The droplets can get into the mouth, nose, or eyes of people near you and lead to infection. To lower the chances of spreading COVID-19 to others: Stay at home until your doctor has said it is safe to leave. If you tested positive this will mean staying isolated until both of the following are true: At least 7 days have passed since the start of illness. You are free of fever for at least 72 hours without the use of medicine. During this time: - Avoid public areas, events, or transportation. Do not return to work or school until your doctor has said it is safe to do so. - Call ahead if you need to go to a medical center. Let them know you may have COVID-19. It will help them guide you where to go. They may also ask you to wear a facemask when you come to the office. - If you call for emergency medical services, let them know you may have COVID- 19. While at home: - Try to avoid close contact with others. Stay about 6 feet away. - If possible, spend most of your time in a separate room from others. - Use a face mask if you will be in close contact with others such as sharing a room or vehicle. - Have someone wipe down common surfaces in the home. Use household supervisor fireworks assembly every day on areas like doorknobs, counters, or sinks. - Cough or sneeze into a tissue. Throw the tissue away right after use. If a tissue is not available, cough or sneeze into your elbow. - Wash your hands often. Wash them after sneezing or coughing. Use soap and water and wash for at least 20 seconds. Alcohol based hand street cleaner can be used if soap and water is not available. - Do not prepare food for others. Avoid sharing personal items like forks, spoons, or toothbrushes. - Avoid close contact with pets while you are sick. There is no evidence of the virus passing to pets. This is a safety step until more is known about this virus. Isolation can be frustrating. Social interaction can help. Keep in touch with friends and family through phone and tech options. You can still interact with others in your home, just keep a safe distance of about 6 feet. Follow-up: Your doctors office will check in with you to see if there are any changes in your health. You may be asked to keep track of symptoms to share with them. They will also let you know when you are clear to be in public again. Problems to Look Out For: Contact your doctor if your recovery is not going as you expect. Get emergency care if you have problems such as: - Trouble breathing - Nonstop chest pain or pressure - Changes in awareness, confusion, or problems waking - Lips or face have bluish color - Worsening of symptoms If you think you have an emergency, call for emergency medical services right away. As taken from [facility] Albuterol Sulfate (PROAIR HFA INHALER) 8.5 Gm Hfa.aer.ad 2 PUFF IH PRN Q4-6HRS PRN for wheezing for 21 Days, #1 INHALER 0 Refills Prov: DAVE BURRELL 12/11/20 DAVE BURRELL Dec 11, 2020 17:38
[2020-12-11] MEDS ORDERED: ALBUTEROL SULFATE 8GM INHALER. INH PRN (17:45)
[2020-12-11] MEDS ORDERED: ALBU2.5V8 IH (18:26)
[2020-12-11 18:34] VITALS: BP 128/73
== END 2020-12-11 18:53 | disposition home or self-care (01) ==
LOC: ER 16:22
DX: U07.1 COVID-19 (principal); F17.200 Nicotine dependence, unspecified, uncomplicated; Z88.5 Allergy status to narcotic agent
CPT/HCPCS: 71045; 81025; 93005; 94640; 99285-25

== ENCOUNTER → 2021-02-11 | Emergency (ER) | payer OTHER ==
[~2021-02-11] MED LIST changes: +ALBU2.5V8 IH
== END | disposition left against medical advice (07) ==
LOC: ER 16:04
DX: K08.89 Other specified disorders of teeth and supporting structures (principal); Z53.21 Procedure and treatment not carried out due to patient leaving prior to being seen by health care provider

== ENCOUNTER 2021-02-28 03:22 | Emergency (ER) | payer OTHER ==
[~2021-02-28] VITALS: Ht 172.7 cm; Wt 104.5 kg
[2021-02-28 03:30] VITALS: BP 195/96
[2021-02-28] MEDS ORDERED: CHLO15MO2 PO (03:44)
[2021-02-28] MEDS ORDERED: AMOX1TAB61 PO (03:44)
[2021-02-28] MEDS ORDERED: HYDR-2761 PO (03:44)
[2021-02-28] MEDS ORDERED: AMOXICILLIN/K CLAV 875/125MG TABLET. PO ONE (03:45)
[2021-02-28] MEDS ORDERED: DEXAMETHASONE 4 MG TABLET PO ONE (03:45)
[2021-02-28] MEDS ORDERED: KETOROLAC 30 MG/ML VIAL. IM ONE (03:45)
--- NOTE | 2021-02-28 03:47 | PHYS DOC ---
Past Medical History Past Medical History: No Pertinent History, Other Additional Past Medical Histor: enlarged liver, HPV, covid dx 12/04/20 Past Surgical History: No Surgical History Smoking Status: Current Every Day Smoker Alcohol Use: Occasionally Drug Use: Marijuana General Adult EDM: Chief Complaint: DENTAL PROBLEM HPI: HPI: Patient is a 40 year old [f__sex] who presents with [] Review of Systems: Review of Systems: Constitutional: Denies fever or chills. [] Eyes: Denies change in visual acuity. [] HENT: Denies nasal congestion or sore throat. [] Respiratory: Denies cough or shortness of breath. [] Cardiovascular: Denies chest pain or edema. [] GI: Denies abdominal pain, nausea, vomiting, bloody stools or diarrhea. [] : Denies dysuria. [] Musculoskeletal: Denies back pain or joint pain. [] Integument: Denies rash. [] Neurologic: Denies headache, focal weakness or sensory changes. [] Endocrine: Denies polyuria or polydipsia. [] Lymphatic: Denies swollen glands. [] Psychiatric: Denies depression or anxiety. [] Heart Score: Risk Factors: Risk Factors: DM, Current or recent (<one month) smoker, HTN, HLP, family history of CAD, obesity. Risk Scores: Score 0 - 3: 2.5% MACE over next 6 weeks - Discharge Home Score 4 - 6: 20.3% MACE over next 6 weeks - Admit for Clinical Observation Score 7 - 10: 72.7% MACE over next 6 weeks - Early Invasive Strategies Allergies: Allergies: Allergies Coded Allergies Type Severity Reaction Last Updated Verified morphine Allergy Intermediate hallucinations 11/21/17 Yes Physical Exam: PE: Constitutional: Well developed, well nourished, no acute distress, non-toxic appearance. [] HENT: Normocephalic, atraumatic, bilateral external ears normal, oropharynx moist, no oral exudates, nose normal. [] Eyes: PERRLA, EOMI, conjunctiva normal, no discharge. [] Neck: Normal range of motion, no tenderness, supple, no stridor. [] Cardiovascular:Heart rate regular rhythm, no murmur [] Lungs & Thorax: Bilateral breath sounds clear to auscultation [] Abdomen: Bowel sounds normal, soft, no tenderness, no masses, no pulsatile masses. [] Skin: Warm, dry, no erythema, no rash. [] Back: No tenderness, no CVA tenderness. [] Extremities: No tenderness, no cyanosis, no clubbing, ROM intact, no edema. [] Neurologic: Alert and oriented X 3, normal motor function, normal sensory function, no focal deficits noted. [] Psychologic: Affect normal, judgement normal, mood normal. [] EKG: EKG: [] Radiology/Procedures: Radiology/Procedures: [] Course & Med Decision Making: Course & Med Decision Making Pertinent Labs and Imaging studies reviewed. (See chart for details) [] Dragon Disclaimer: Dragon Disclaimer: This electronic medical record was generated, in whole or in part, using a voice recognition dictation system. Departure Departure Impression: Primary Impression: Dentalgia Additional Impression: Dental caries Disposition: HOME / SELF CARE / HOMELESS Condition: STABLE Referrals: UNKNOWN PCP NAME (PCP) Patient Instructions: Dental Caries, Toothache-Brief Additional Instructions: Please follow with a dentist regarding your dental issues. Scripts Chlorhexidine Gluconate (PERIDEX) 15 Ml Mouthwash 15 ML PO BID for 7 Days, #473 ML 0 Refills Prov: SEAN RICHMOND DO 02/28/21 Hydrocodone Bit/Acetaminophen (HYDROCODONE-APAP 5-325 ) 1 Tab Tablet 0.5-1 TAB PO PRN Q6HRS PRN for PAIN, #14 TAB 0 Refills Prov: SEAN RICHMOND DO 02/28/21 Amoxicillin/Potassium Clav (AUGMENTIN 875-125 TABLET) 1 Each Tablet 1 TAB PO BID, #14 TAB Prov: SEAN RICHMOND DO 02/28/21 SEAN RICHMOND DO Feb 28, 2021 03:46
== END 2021-02-28 04:03 | disposition home or self-care (01) ==
LOC: ER 03:22
DX: K02.9 Dental caries, unspecified (principal); K08.89 Other specified disorders of teeth and supporting structures; F17.200 Nicotine dependence, unspecified, uncomplicated; Z88.5 Allergy status to narcotic agent
CPT/HCPCS: 96372; 99283; J1885

== ENCOUNTER 2021-06-30 18:24 | Emergency (ER) | payer OTHER ==
[~2021-06-30] VITALS: Ht 170.2 cm; Wt 105.9 kg
[~2021-06-30 18:24] MED LIST changes: +AMOX1TAB61 PO; +CHLO15MO2 PO; +HYDR-2761 PO
--- NOTE | 2021-06-30 18:44 | EKG ---
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
[2021-06-30 18:50] LABS: BASO # 0.1 x10^3/uL (0.0-0.2); BASO % 1 % (0-3); EOS # 0.2 x10^3/uL (0.0-0.7); EOS % 2 % (0-3); HEMATOCRIT 40.2 % (36.0-47.0); HEMOGLOBIN 13.8 g/dL (12.0-15.5); LYMPH # 3.6 x10^3/uL (1.0-4.8); LYMPH % 37 % (24-48); MEAN CORPUSCULAR HEMOGLOBIN 29 pg (25-35); MEAN CORPUSCULAR HGB CONC 34 g/dL (31-37); MEAN CORPUSCULAR VOLUME 84 fL (79-100); MONO # 0.7 x10^3/uL (0.0-1.1); MONO % 7 % (0-9); NEUT # 5.1 x10^3/uL (1.8-7.7); NEUT % 53 % (31-73); PLATELET COUNT 318 x10^3/uL (140-400); RED BLOOD COUNT 4.77 x10^6/uL (3.50-5.40); RED CELL DISTRIBUTION WIDTH 13.9 % (11.5-14.5); WHITE BLOOD COUNT 9.6 x10^3/uL (4.0-11.0)
[2021-06-30 19:04] LABS: CALCIUM 9.5 mg/dL (8.5-10.1); GFR 61.7; POTASSIUM 3.9 mmol/L (3.5-5.1)
[2021-06-30 19:06] LABS: PREG TEST PT QUAL NEGATIVE (NEG)
[2021-06-30 19:07] VITALS: BP 113/58
[2021-06-30 19:10] LABS: ALBUMIN 4.1 g/dL (3.4-5.0); ALBUMIN/GLOBULIN RATIO 1.1 (1.0-1.7); TOTAL BILIRUBIN 0.3 mg/dL (0.2-1.0); TOTAL PROTEIN 7.7 g/dL (6.4-8.2)
--- NOTE | 2021-06-30 19:17 | PHYS DOC ---
Past Medical History Past Medical History: Other Additional Past Medical Histor: enlarged liver, HPV, covid dx 12/04/20 Past Surgical History: Tubal ligation, Other Additional Past Surgical Histo: cyst removal Smoking Status: Current Every Day Smoker Alcohol Use: Occasionally Drug Use: Marijuana General Adult EDM: Chief Complaint: CHEST PAIN Problems: (1) Chest pain HPI: HPI: Patient is a 40 year old female who presents with sharp, L sided chest pains that come and go, not related to anything she can recall, lasting from seconds to minutes, for the past several months. Patient noted that the pains increased in severity after she received a painful massage some weeks ago. Patient reports she went to an ER with the same complaint in the past year and was told there was nothing wrong. Patient does not have a PCP and has never been seen for chest pain outside of the ER. Patient denies fevers, chills, n/v/d. Review of Systems: Review of Systems: Constitutional: Denies fever or chills. [] Eyes: Denies change in visual acuity. [] HENT: Denies nasal congestion or sore throat. [] Respiratory: Denies cough or shortness of breath. [] Cardiovascular: Denies chest pain or edema. [] GI: Denies abdominal pain, nausea, vomiting, bloody stools or diarrhea. [] : Denies dysuria. [] Musculoskeletal: Denies back pain or joint pain. [] Integument: Denies rash. [] Neurologic: Denies headache, focal weakness or sensory changes. [] Endocrine: Denies polyuria or polydipsia. [] Lymphatic: Denies swollen glands. [] Psychiatric: Denies depression or anxiety. [] Heart Score: C/O Chest Pain: Yes HEART Score for Chest Pain: HEART Score for Chest Pain Response (Comments) Value History Slighlty/Non-Suspicious 0 ECG Normal 0 Age < 45 0 Risk Factors No Risk Factors 0 Troponin < Normal Limit 0 Total 0 Risk Factors: Risk Factors: DM, Current or recent (<one month) smoker, HTN, HLP, family history of CAD, obesity. Risk Scores: Score 0 - 3: 2.5% MACE over next 6 weeks - Discharge Home Score 4 - 6: 20.3% MACE over next 6 weeks - Admit for Clinical Observation Score 7 - 10: 72.7% MACE over next 6 weeks - Early Invasive Strategies Current Medications: none Allergies: Allergies: Allergies Coded Allergies Type Severity Reaction Last Updated Verified morphine Allergy Intermediate hallucinations 11/21/17 Yes Physical Exam: PE: Constitutional: Well developed, well nourished, no acute distress, non-toxic appearance. [] HENT: Normocephalic, atraumatic, bilateral external ears normal, oropharynx moist, no oral exudates, nose normal. [] Eyes: PERRLA, EOMI, conjunctiva normal, no discharge. [] Neck: Normal range of motion, no tenderness, supple, no stridor. [] Cardiovascular:Heart rate regular rhythm, no murmur [] Lungs & Thorax: Bilateral breath sounds clear to auscultation [] Abdomen: Bowel sounds normal, soft, no tenderness, no masses, no pulsatile masses. [] Skin: Warm, dry, no erythema, no rash. [] Back: No tenderness, no CVA tenderness. [] Extremities: No tenderness, no cyanosis, no clubbing, ROM intact, no edema. [] Neurologic: Alert and oriented X 3, normal motor function, normal sensory function, no focal deficits noted. [] Psychologic: Affect normal, judgement normal, mood normal. [] Current Patient Data: Labs: Laboratory Tests Test 06/30/21 18:42 White Blood Count 9.6 x10^3/uL (4.0-11.0) Red Blood Count 4.77 x10^6/uL (3.50-5.40) Hemoglobin 13.8 g/dL (12.0-15.5) Hematocrit 40.2 % (36.0-47.0) Mean Corpuscular Volume 84 fL (79-100) Mean Corpuscular Hemoglobin 29 pg (25-35) Mean Corpuscular Hemoglobin Concent 34 g/dL (31-37) Red Cell Distribution Width 13.9 % (11.5-14.5) Platelet Count 318 x10^3/uL (140-400) Neutrophils (%) (Auto) 53 % (31-73) Lymphocytes (%) (Auto) 37 % (24-48) Monocytes (%) (Auto) 7 % (0-9) Eosinophils (%) (Auto) 2 % (0-3) Basophils (%) (Auto) 1 % (0-3) Neutrophils # (Auto) 5.1 x10^3/uL (1.8-7.7) Lymphocytes # (Auto) 3.6 x10^3/uL (1.0-4.8) Monocytes # (Auto) 0.7 x10^3/uL (0.0-1.1) Eosinophils # (Auto) 0.2 x10^3/uL (0.0-0.7) Basophils # (Auto) 0.1 x10^3/uL (0.0-0.2) Sodium Level 139 mmol/L (136-145) Potassium Level 3.9 mmol/L (3.5-5.1) Chloride Level 102 mmol/L (98-107) Carbon Dioxide Level 27 mmol/L (21-32) Anion Gap 10 (6-14) Blood Urea Nitrogen 6 mg/dL (7-20) L Creatinine 1.0 mg/dL (0.6-1.0) Estimated GFR (Cockcroft-Gault) 61.7 BUN/Creatinine Ratio 6 (6-20) Glucose Level 109 mg/dL (70-99) H Calcium Level 9.5 mg/dL (8.5-10.1) Total Bilirubin 0.3 mg/dL (0.2-1.0) Aspartate Amino Transferase (AST) 21 U/L (15-37) Alanine Aminotransferase (ALT) 35 U/L (14-59) Alkaline Phosphatase 56 U/L (46-116) Total Protein 7.7 g/dL (6.4-8.2) Albumin 4.1 g/dL (3.4-5.0) Albumin/Globulin Ratio 1.1 (1.0-1.7) Serum Test, Qualitative Negative (NEG) Laboratory Tests 06/30/21 18:42 Laboratory Tests 06/30/21 18:42 Vital Signs: Vital Signs Date Time Temp Pulse Resp B/P (MAP) Pulse Ox O2 Delivery O2 Flow Rate FiO2 06/30/21 18:30 98.5 72 20 131/63 (85) 99 Room Air 98.5 EKG: EKG: EKG done at 1831, normal sinus rhythm at a rate of 71, normal axis, normal intervals, no ischemic changes. Radiology/Procedures: Radiology/Procedures: CXR Impression: No large focal opacity or effusion, no pnx, narrow mediastinem, no rib fx. Course & Med Decision Making: Course & Med Decision Making Pertinent Labs and Imaging studies reviewed. (See chart for details) Patient with chronic chest pain, clinically suspect musculoskeletal pain as opposed to cardiac or pleuritic. Will check cardiac enzymes as well as basic labs, EKG, chest x-ray and if the work-up is negative given that the pain has been for several months will recommend the patient follows up with a primary doctor for cardiology referral as needed. We will give the patient IV Toradol for pain. Dragon Disclaimer: Dragon Disclaimer: This electronic medical record was generated, in whole or in part, using a voice recognition dictation system. Departure Departure Impression: Primary Impression: Chest pain Qualified Codes: R07.9 - Chest pain, unspecified Disposition: HOME / SELF CARE / HOMELESS Condition: IMPROVED Referrals: PAULINA GILL MD (PCP) Patient Instructions: Chest Pain (Nonspecific), [facility] Scripts Cyclobenzaprine Hcl (CYCLOBENZAPRINE HCL) 5 Mg Tablet 5 MG PO PRN TID PRN for MUSCLE SPASMS for 7 Days, #15 TAB Prov: FABRICE COLILNS MD 06/30/21 FABRICE COLLINS MD June 30, 2021 19:17
[2021-06-30] MEDS ORDERED: CYCL5TAB PO (19:37)
[2021-06-30] MEDS ORDERED: KETOROLAC 15 MG/ML VIAL. IVP ONE (20:00)
--- NOTE | 2021-06-30 21:32 | RAD ---
EXAM: CHEST ONE VIEW. HISTORY: Chest pain. COMPARISON: 12/11/2020. FINDINGS: A frontal view of the chest is obtained. There are no confluent infiltrates. There is no pneumothorax or pleural effusion. The heart is not en larged. IMPRESSION: 1. No confluent infiltrates. Electronically signed by: Kev Betancourt MD (06/30/2021 9:30 PM) [facility]
== END 2021-06-30 19:45 | disposition home or self-care (01) ==
LOC: ER 18:24
DX: R07.89 Other chest pain (principal); F17.200 Nicotine dependence, unspecified, uncomplicated; Z88.5 Allergy status to narcotic agent
CPT/HCPCS: 36415; 71045; 80053; 83880; 84484; 84703; 85025; 93005; 96374; 99285; J1885